=== PATIENT | male | born 1975 | race Caucasian/White ===

== ENCOUNTER 2023-11-07 04:20 | Emergency (ER) | payer OTHER ==
[~2023-11-07] VITALS: Ht 185.4 cm; Wt 120.2 kg
[2023-11-07 04:28] VITALS: BP_SYST 147; PULSE 100; RESP 20; TEMP 99.4; O2SAT 94
[2023-11-07] MEDS ORDERED: cefTRIAXone 1 GM VIAL ONE (05:47)
[2023-11-07] MEDS ORDERED: AZITHROMYCIN 500 MG/VIAL (ZITHROMAX) IV ONE (05:48)
[2023-11-07] MEDS: cefTRIAXone 1 GM in D5W 50 ML IV ONE (06:00)
[2023-11-07] MEDS: NACL 0.9% 1,000 ML IV ONE (06:00)
[2023-11-07 06:14] LABS: EOSINOPHILS # (AUTO) 0.1 K/uL (0.0-0.4); HEMOGLOBIN 12.1 g/dL (14.0-18.0); MEAN CORPUSCULAR HEMOGLOBIN 34 pg (27-31); RED CELL DISTRIBUTION WIDTH 14.3 % (9.0-15.0); WHITE BLOOD COUNT (AUTO) 4.4 K/uL (4.8-10.8)
[2023-11-07] MEDS: AZITHROMYCIN 500 MG in NS 250 ML IV ONE (06:20)
[2023-11-07 06:23] LABS: BASOPHILS # (AUTO) 0.2 K/uL (0.0-0.2); BASOPHILS % (AUTO) 3.5 % (0.0-2.0); EOSINOPHILS % (AUTO) 2.5 % (0.0-4.0); HEMATOCRIT 35.6 % (36-54); LYMPHOCYTES # (AUTO) 0.6 K/uL (1.0-5.5); LYMPHOCYTES % (AUTO) 14.2 % (20.5-51.5); MEAN CORPUSCULAR HGB CONC 34 % (32-36); MEAN CORPUSCULAR VOLUME 100 fL (79.0-98.0); MONOCYTES # (AUTO) 0.5 K/uL (0.0-1.0); MONOCYTES % (AUTO) 12.3 % (1.7-9.3); NEUTROPHILS % (AUTO) 67.5 % (40.0-70.0); RED BLOOD CELL COUNT(AUTO) 3.57 MIL/uL (4.2-6.2)
[2023-11-07 06:24] LABS: PLATELET COUNT (AUTO) 68 K/uL (130-430)
[2023-11-07 06:41] LABS: ANION GAP 9 (5-15); CALCIUM 8.5 mg/dL (8.4-11.0); CARBON DIOXIDE 25 mmol/L (23-29); CHLORIDE 101 mmol/L (98-107); CREATININE 0.62 mg/dL (0.55-1.30); GFR AFRICAN AMERICAN 178 mL/min (>90); GLUCOSE 82 mg/dL (74-106); POTASSIUM 3.9 mmol/L (3.5-5.1); SODIUM SERUM 135 mmol/L (136-145); UREA NITROGEN, BLOOD 6 mg/dL (8-21)
[2023-11-07 06:42] LABS: GFR NON AFRICAN-AMERICAN 147 mL/min (>90)
[2023-11-07 06:48] LABS: ALANINE AMINOTRANSFERASE 34 U/L (12-78); ALBUMIN 2.8 g/dL (3.4-4.8); ASPARTATE AMINOTRANSFERASE 112 U/L (10-37); BILIRUBIN,DIRECT 3.8 mg/dL (0.0-0.3); TOTAL BILIRUBIN 7.4 mg/dL (0.0-1.0); TOTAL PROTEIN, SERUM 7.3 g/dL (6.4-8.3)
[2023-11-07 07:41] LABS: INFLUENZA TYPE A Negative (NEGATIVE); INFLUENZA TYPE B NEGATIVE (NEGATIVE)
[2023-11-07 08:47] VITALS: BP_SYST 147; PULSE 96; RESP 18; TEMP 98.9; O2SAT 95
== END 2023-11-07 08:40 | disposition left against medical advice (07) ==
LOC: SED 04:20
DX: J96.01 Acute respiratory failure with hypoxia (principal); J18.8 Other pneumonia, unspecified organism; I10 Essential (primary) hypertension; Z20.822 Contact with and (suspected) exposure to COVID-19
CPT/HCPCS: 99291; 96365; 71250; 71045; 96367; 87426; 80076; 80048; 85025; 87040; 84484; 36415; 93005; 83605; 87804 ×2; J0456; J0696; 96368; 99285